=== PATIENT | male | born 1945 | race Caucasian/White ===

== ENCOUNTER 2017-09-25 16:15 | Emergency (ER) | payer MEDICARE, OTHER ==
[2017-09-25] MEDS ORDERED: Ondansetron INJ* 2 MG/ML VIAL IV ONE (16:49)
[2017-09-25] MEDS ORDERED: Meclizine TAB* 12.5 MG PO ONE ×2 (16:49→22:36)
[2017-09-25] MEDS ORDERED: NS 0.9% 1000 ML* 1,000 ML IV ONE (16:49)
--- NOTE | 2017-09-25 17:09 | RAD ---
HISTORY: Dizziness COMPARISONS: None TECHNIQUE: Multiple contiguous axial CT scans were obtained of the head without intravenous contrast. FINDINGS: HEMORRHAGE/INFARCT: There is no hemorrhage or acute infarct. MASSES/SHIFT: There is no mass or shift. EXTRA-AXIAL SPACES: There are no extra-axial fluid collections. SULCI AND VENTRICLES: The sulci and ventricles are normal in size and position for the patient's stated age. CEREBRUM: There are no focal parenchymal abnormalities. BRAINSTEM: There are no focal parenchymal abnormalities. CEREBELLUM: There are no focal parenchymal abnormalities. VESSELS: The vessels are grossly normal. PARANASAL SINUSES: The paranasal sinuses are clear. ORBITS: The orbits are unremarkable. BONES AND SOFT TISSUE: No bone or soft tissue abnormalities are noted. OTHER: None IMPRESSION: NO ACUTE INTRACRANIAL PATHOLOGY.
[2017-09-25 17:41] LABS: Hematocrit 42 % (42-52); Hemoglobin 14.2 g/dl (14.0-18.0); Mean Corpuscular HGB Conc 34 g/dl (31-36); Mean Corpuscular Hemoglobin 31 pg (27-31); Mean Corpuscular Volume 91 fL (80-94); Mean Platelet Volume 8 um3 (7.4-10.4); Red Blood Count 4.61 10^6/ul (4.0-5.4); Red Cell Distribution Width 14 % (10.5-15); White Blood Count 17.7 10^3/ul (3.5-10.8)
--- NOTE | 2017-09-25 17:43 | RAD ---
HISTORY: Near syncope COMPARISONS: None VIEWS: 1: frontal portable view of the chest at 5:25 PM FINDINGS: LINES AND TUBES: None. CARDIOMEDIASTINAL SILHOUETTE: The cardiomediastinal silhouette is normal for portable technique. Surgical clips are noted in the mediastinum. PLEURA: The costophrenic angles are sharp. No pleural abnormalities are noted. LUNG PARENCHYMA: There is a diffuse reticular pattern with indistinct pulmonary vessels. ABDOMEN: The upper abdomen is clear. There is no subphrenic gas. BONES AND SOFT TISSUES: The patient is status post median sternotomy. IMPRESSION: LOW LUNG VOLUMES. NO ACTIVE CARDIOPULMONARY DISEASE.
[2017-09-25 17:56] LABS: ALT 26 U/L (7-52); Albumin 4.3 g/dL (3.2-5.2); Alkaline Phosphatase 64 U/L (34-104); BUN/Creatinine Ratio 19.5 (8-20); Blood Urea Nitrogen 17 mg/dL (6-24); C Reactive Protein < 1.00 mg/L (< 5.00); CO2 Carbon Dioxide 23 mmol/L (22-32); Calcium 9.1 mg/dL (8.6-10.3); Chloride 103 mmol/L (101-111); Creatine Kinase 79 U/L (10-223); EGFR African American 110.6 (>60); Globulin 2.6 g/dL (2-4); Glucose 229 mg/dL (70-100); Lipase 42 U/L (11.0-82.0); Magnesium 1.7 mg/dL (1.9-2.7); Sodium 136 mmol/L (133-145); Total Protein 6.9 g/dL (6.4-8.9)
[2017-09-25 17:57] LABS: Troponin I 0.02 ng/mL (<0.04)
[2017-09-25 17:58] LABS: Anion Gap 10 mmol/L (2-11)
[2017-09-25 18:16] LABS: TSH (Thyroid Stimulating Horm) 0.32 mcIU/mL (0.34-5.60)
[2017-09-25] MEDS ORDERED: Magnesium Sulfate 2 GM IV* 2 GM/50 ML BAG IVPB ONE (18:23)
[2017-09-25 18:47] LABS: Urine Bacteria Absent (Absent); Urine Bilirubin Negative (Negative); Urine Glucose 3+(>=500 mg/dL) (Negative); Urine Nitrite Negative (Negative)
[2017-09-25] MEDS ORDERED: Iodixanol* (CONTRAST) 320 MG/ML 100 ML SDV IV ONE (19:28)
--- NOTE | 2017-09-25 20:05 | RAD ---
HISTORY: Near syncope, positive d-dimer COMPARISONS: None TECHNIQUE: Multiple contiguous axial CT scans of the chest were obtained after the administration of nonionic intravenous contrast, timed to the pulmonary arterial phase of contrast enhancement.. Coronal and sagittal multiplanar reformations are also submitted for review. FINDINGS: NECK AND THYROID: The lower neck and thyroid are unremarkable. CHEST WALL: There is no lower cervical, axillary, or supraclavicular lymphadenopathy by size criteria. HEART AND PERICARDIUM: The heart is unremarkable. AORTA AND PULMONARY VASCULATURE: There is no pulmonary arterial filling defect to suggest pulmonary embolism. There is no linear filling defect within the aorta to suggest aortic dissection. MEDIASTINUM: There is no mediastinal lymphadenopathy by size criteria. LYNN: There is no hilar lymphadenopathy by size criteria. AIRWAY AND ESOPHAGUS: The airway is unremarkable, without endobronchial filling defect. The esophagus is grossly normal. LUNG PARENCHYMA: There is a 1.7 cm nodule of the left lower lobe best seen on axial image 34 and coronal image 72. PLEURA: No pleural abnormalities are noted. UPPER ABDOMEN: The upper abdomen is unremarkable. BONES AND SOFT TISSUES: Degenerative changes are noted of the spine. The patient is status post median sternotomy. OTHER: None. IMPRESSION: 1. NO PULMONARY ARTERIAL FILLING DEFECT TO SUGGEST PULMONARY EMBOLISM. 2. 1.7 CM LEFT LOWER LOBE LUNG NODULE. THE RECOMMENDATIONS FOR FOLLOWUP AND MANAGEMENT OF AN INCIDENTALLY DETECTED PULMONARY NODULE GREATER THAN 8 MM IN SIZE, IN A PATIENT WITHOUT A HISTORY OF MALIGNANCY, INCLUDE FOLLOWUP CT AT 3 MONTHS, PET-CT, AND/OR BIOPSY. NOTES: SIZE = AVERAGE LENGTH AND WIDTH; HIGH RISK IS DEFINED A HISTORY OF SMOKING OR OTHER KNOW RISK FACTORS FOR LUNG CANCER; LOW RISK IS DEFINED MINIMAL OR ABSENT HISTORY OF SMOKING OR OTHER KNOWN RISK FACTORS. Deon H, ONEYDA Martinez, PK Jones, et al (2017) "Guidelines for Management of Incidental Pulmonary Nodules Detected on CT Images: From the Fleischner Society 2017." Radiology; 284(1): 228-243. doi:10.1148/radiol.[id number]
--- NOTE | 2017-09-25 21:11 | RAD ---
HISTORY: Positive d-dimer COMPARISONS: None relevant TECHNIQUE: Multiple transverse and longitudinal ultrasound images were obtained of the left lower extremity from the level of the common femoral vein inferiorly through to the infrapopliteal veins using grayscale, color Doppler, and spectral Doppler imaging with and without compression and with augmentation. Comparison images were obtained of the contralateral common femoral vein. FINDINGS: VEINS: The peroneal veins are compressible but have diminished flow on color Doppler imaging. The remainder of the venous system of the left lower extremity is compressible throughout its course, with normal flow on color Doppler imaging and normal response to augmentation on spectral Doppler imaging. SOFT TISSUES: Unremarkable. OTHER FINDINGS: None. IMPRESSION: DIMINISHED FLOW OF THE CALF VEINS WHICH MAY BE ARTIFACTUAL MAY REFLECT CHRONIC CALF VEIN THROMBOSIS. NO SUPRAPOPLITEAL DEEP VEIN THROMBOSIS
[2017-09-25] MEDS ORDERED: Ondansetron ODT TAB* 4 MG PO ONE (22:37)
--- NOTE | 2017-09-25 22:52 | ED ---
Jeremie Epperson Alfonso, scribed for Mikal Antony MD on 09/25/17 at 1652 . Syncope/Near Syncope - HPI Summary HPI Summary: This patient is a 72 year old M BIBA to [facility] accompanied by with a chief complaint of near-syncope since 1529. The symptoms began while at the [employer] game. The patient rates the pain 0/10 in severity. Symptoms aggravated by head movement and standing. Symptoms alleviated by rest. Patient reports dizziness (lightheadedness/room spinning), loss of balance, N/V, general weakness ("weighting a ton"), and dry mouth. Patient denies SOB, diaphoresis, CP , REYNA, neck pain, abd pain, melena, blood in stool, calf edema, focal weakness, and numbness. - History Of Current Complaint Chief Complaint: EDSyncope Time Seen by Provider: 09/25/17 16:29 Hx Obtained From: Patient, Family/Nurse Examiner Onset/Duration: Sudden Onset, Lasting Minutes, Still Present Timing: Constant Context: Witnessed Activity At Onset: Other - [email or web address] game Aggravating Factor(s): Position Change - head movement and standing Alleviating Factor(s): Rest Associated Signs And Symptoms: Other - dizziness (lightheadedness/room spinning) , loss of balance, N/V, general weakness ("weighting a ton"), and dry mouth. Patient denies SOB, diaphoresis, CP, REYNA, neck pain, abd pain, melena, blood in stool, calf edema, focal weakness, and numbness. - Allergies/Home Medications Allergies/Adverse Reactions: Allergies Allergy/AdvReac Type Severity Reaction Status Date / Time No Known Allergies Allergy Verified 09/25/17 16:23 Home Medications: Home Medications Aspirin [Aspirin 81 MG TAB] 81 mg PO DAILY 09/25/17 [History Confirmed 09/25/17] Atorvastatin* [Lipitor 40 MG*] 40 mg PO DAILY 09/25/17 [History Confirmed ] Escitalopram (NF) [Lexapro 10 mg (NF)] 10 mg PO DAILY 09/25/17 [History Confirmed 09/25/17] Levothyroxine TAB* [Synthroid 150 MCG TAB*] 150 mcg PO DAILY 09/25/17 [History Confirmed 09/25/17] Lisinopril TAB* [Prinivil TAB 10 MG*] 40 mg PO DAILY 09/25/17 [History Confirmed 09/25/17] Metoprolol Tartrate TAB* [Lopressor TAB*] 50 mg PO DAILY 09/25/17 [History Confirmed 09/25/17] amLODIPine TAB* [Norvasc 5 mg TAB*] 10 mg PO DAILY 09/25/17 [History Confirmed 09/25/17] metFORMIN* [Glucophage 1000 MG TAB *] 1,000 mg PO BID 09/25/17 [History Confirmed 09/25/17] PMH/Surg Hx/FS Hx/Imm Hx Previously Healthy: No Endocrine/Hematology History: Reports: Hx Diabetes Cardiovascular History: Reports: Hx Coronary Artery Disease, Hx Hypercholesterolemia, Hx Hypertension, Hx Myocardial Infarction EENT History: Reports: 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 - Surgical History Surgery Procedure, Year, and Place: quadruple bypass Infectious Disease History: No Infectious Disease History: Denies: Traveled Outside the [place] in Last 30 Days - Family History Known Family History: Positive: Cardiac Disease - Social History Lives: With Family Alcohol Use: Rare Hx Substance Use: No Substance Use Type: Reports: None Hx Tobacco Use: Yes Smoking Status (MU): Former Smoker Review of Systems Negative: Skin Diaphoresis Positive: Other - dry mouth Negative: Chest Pain Negative: Shortness Of Breath Positive: Vomiting, Nausea, Other - negative melena, blood in stool. Negative: Abdominal Pain Positive: Other - Negative neck pain. Negative: Edema Neurological: Other - dizziness (lightheadedness/room spinning), loss of balance ; negative focal weakness Positive: Weakness - generalized, Syncope - near-syncope. Negative: Headache, Numbness All Other Systems Reviewed And Are Negative: Yes Physical Exam - Summary Physical Exam Summary: General: well-appearing, no pain distress Skin: warm, color reflects adequate perfusion, dry Head: normal Eyes: EOMI, EVELIO ENT: Right TM opaque, Left TM normal. Neck: supple, nontender Respiratory: CTA, breath sounds present Cardiovascular: RRR Abdomen: soft, nontender Bowel: present Musculoskeletal: normal, strength/ROM intact Neurological: normal, sensory/motor intact, A&O x3 Psychological: affect/mood appropriate Triage Information Reviewed: Yes Vital Signs On Initial Exam: Initial Vitals Temp Pulse Resp BP Pulse Ox 97.3 F 67 14 152/63 94 09/25/17 16:19 09/25/17 16:19 09/25/17 16:19 09/25/17 16:19 09/25/17 16:19 Vital Signs Reviewed: Yes - Fab Coma Scale Coma Scale Total: 14 Diagnostics - Vital Signs Vital Signs Temp Pulse Resp BP Pulse Ox 09/25/17 16:30 66 122/50 96 09/25/17 16:23 68 19 92 09/25/17 16:21 152/63 09/25/17 16:19 97.3 F 67 14 152/63 94 - Laboratory Lab Results: Lab Results 09/25/17 09/25/17 09/25/17 Range/Units 17:13 17:13 17:13 WBC (3.5-10.8) 10^3/ul RBC (4.0-5.4) 10^6/ul Hgb (14.0-18.0) g/dl Hct (42-52) % MCV (80-94) fL MCH (27-31) pg MCHC (31-36) g/dl RDW (10.5-15) % Plt Count (150-450) 10^3/ul MPV (7.4-10.4) um3 Neut % (Auto) (38-83) % Lymph % (Auto) (25-47) % Gates % (Auto) (1-9) % Eos % (Auto) (0-6) % Baso % (Auto) (0-2) % Absolute Neuts (auto) (1.5-7.7) 10^3/ul Absolute Lymphs (auto) (1.0-4.8) 10^3/ul Absolute Monos (auto) (0-0.8) 10^3/ul Absolute Eos (auto) (0-0.6) 10^3/ul Absolute Basos (auto) (0-0.2) 10^3/ul Absolute Nucleated RBC 10^3/ul Nucleated RBC % INR (Anticoag Therapy) 0.90 (0.89-1.11) APTT 25.5 L (26.0-36.3) seconds D-Dimer, Quantitative 313 H (Less Than 230) ng/mL Sodium 136 (133-145) mmol/L Potassium TNP Chloride 103 (101-111) mmol/L Carbon Dioxide 23 (22-32) mmol/L Anion Gap 10 (2-11) mmol/L BUN 17 (6-24) mg/dL Creatinine 0.87 (0.67-1.17) mg/dL Est GFR ( Amer) 110.6 (>60) Est GFR (Non-Af Amer) 86.0 (>60) BUN/Creatinine Ratio 19.5 (8-20) Glucose 229 H (70-100) mg/dL Lactic Acid 3.7 H* (0.5-2.0) mmol/L Calcium 9.1 (8.6-10.3) mg/dL Magnesium 1.7 L (1.9-2.7) mg/dL Total Bilirubin 0.50 (0.2-1.0) mg/dL AST TNP ALT 26 (7-52) U/L Alkaline Phosphatase 64 (34-104) U/L Total Creatine Kinase 79 (10-223) U/L CK-MB (CK-2) 2.2 (0.6-6.3) ng/mL Troponin I 0.02 (<0.04) ng/mL C-Reactive Protein < 1.00 (< 5.00) mg/L B-Natriuretic Peptide ( - 100) pg/mL Total Protein 6.9 (6.4-8.9) g/dL Albumin 4.3 (3.2-5.2) g/dL Globulin 2.6 (2-4) g/dL Albumin/Globulin Ratio 1.7 (1-3) Lipase 42 (11.0-82.0) U/L TSH 0.32 L (0.34-5.60) mcIU/mL Urine Color Urine Appearance Urine pH (5-9) Ur Specific [place] (1.010-1.030) Urine Protein (Negative) Urine Ketones (Negative) Urine Blood (Negative) Urine Nitrate (Negative) Urine Bilirubin (Negative) Urine Urobilinogen (Negative) Ur Leukocyte Esterase (Negative) Urine WBC (Auto) (Absent) Urine RBC (Auto) (Absent) Urine Bacteria (Absent) Urine Glucose (Negative) Urine Ascorbic Acid (Negative) 09/25/17 09/25/17 09/25/17 Range/Units 17:13 17:13 18:37 WBC 17.7 H (3.5-10.8) 10^3/ul RBC 4.61 (4.0-5.4) 10^6/ul Hgb 14.2 (14.0-18.0) g/dl Hct 42 (42-52) % MCV 91 (80-94) fL MCH 31 (27-31) pg MCHC 34 (31-36) g/dl RDW 14 (10.5-15) % Plt Count 211 (150-450) 10^3/ul MPV 8 (7.4-10.4) um3 Neut % (Auto) 86.4 H (38-83) % Lymph % (Auto) 7.5 L (25-47) % Gates % (Auto) 5.3 (1-9) % Eos % (Auto) 0.3 (0-6) % Baso % (Auto) 0.5 (0-2) % Absolute Neuts (auto) 15.3 H (1.5-7.7) 10^3/ul Absolute Lymphs (auto) 1.3 (1.0-4.8) 10^3/ul Absolute Monos (auto) 0.9 H (0-0.8) 10^3/ul Absolute Eos (auto) 0 (0-0.6) 10^3/ul Absolute Basos (auto) 0.1 (0-0.2) 10^3/ul Absolute Nucleated RBC 0.02 10^3/ul Nucleated RBC % 0.1 INR (Anticoag Therapy) (0.89-1.11) APTT (26.0-36.3) seconds D-Dimer, Quantitative (Less Than 230) ng/mL Sodium (133-145) mmol/L Potassium Chloride (101-111) mmol/L Carbon Dioxide (22-32) mmol/L Anion Gap (2-11) mmol/L BUN (6-24) mg/dL Creatinine (0.67-1.17) mg/dL Est GFR ( Amer) (>60) Est GFR (Non-Af Amer) (>60) BUN/Creatinine Ratio (8-20) Glucose (70-100) mg/dL Lactic Acid (0.5-2.0) mmol/L Calcium (8.6-10.3) mg/dL Magnesium (1.9-2.7) mg/dL Total Bilirubin (0.2-1.0) mg/dL AST ALT (7-52) U/L Alkaline Phosphatase (34-104) U/L Total Creatine Kinase (10-223) U/L CK-MB (CK-2) (0.6-6.3) ng/mL Troponin I (<0.04) ng/mL C-Reactive Protein (< 5.00) mg/L B-Natriuretic Peptide 66 ( - 100) pg/mL Total Protein (6.4-8.9) g/dL Albumin (3.2-5.2) g/dL Globulin (2-4) g/dL Albumin/Globulin Ratio (1-3) Lipase (11.0-82.0) U/L TSH (0.34-5.60) mcIU/mL Urine Color Yellow Urine Appearance Clear Urine pH 5.0 (5-9) Ur Specific [place] 1.015 (1.010-1.030) Urine Protein 1+(30 mg/dl) H (Negative) Urine Ketones Trace H (Negative) Urine Blood Negative (Negative) Urine Nitrate Negative (Negative) Urine Bilirubin Negative (Negative) Urine Urobilinogen Negative (Negative) Ur Leukocyte Esterase Negative (Negative) Urine WBC (Auto) Absent (Absent) Urine RBC (Auto) Trace(0-2/hpf) (Absent) Urine Bacteria Absent (Absent) Urine Glucose 3+(>=500 mg/dl) H (Negative) Urine Ascorbic Acid * H (Negative) 09/25/17 Range/Units 21:23 WBC (3.5-10.8) 10^3/ul RBC (4.0-5.4) 10^6/ul Hgb (14.0-18.0) g/dl Hct (42-52) % MCV (80-94) fL MCH (27-31) pg MCHC (31-36) g/dl RDW (10.5-15) % Plt Count (150-450) 10^3/ul MPV (7.4-10.4) um3 Neut % (Auto) (38-83) % Lymph % (Auto) (25-47) % Gates % (Auto) (1-9) % Eos % (Auto) (0-6) % Baso % (Auto) (0-2) % Absolute Neuts (auto) (1.5-7.7) 10^3/ul Absolute Lymphs (auto) (1.0-4.8) 10^3/ul Absolute Monos (auto) (0-0.8) 10^3/ul Absolute Eos (auto) (0-0.6) 10^3/ul Absolute Basos (auto) (0-0.2) 10^3/ul Absolute Nucleated RBC 10^3/ul Nucleated RBC % INR (Anticoag Therapy) (0.89-1.11) APTT (26.0-36.3) seconds D-Dimer, Quantitative (Less Than 230) ng/mL Sodium (133-145) mmol/L Potassium Chloride (101-111) mmol/L Carbon Dioxide (22-32) mmol/L Anion Gap (2-11) mmol/L BUN (6-24) mg/dL Creatinine (0.67-1.17) mg/dL Est GFR ( Amer) (>60) Est GFR (Non-Af Amer) (>60) BUN/Creatinine Ratio (8-20) Glucose (70-100) mg/dL Lactic Acid (0.5-2.0) mmol/L Calcium (8.6-10.3) mg/dL Magnesium (1.9-2.7) mg/dL Total Bilirubin (0.2-1.0) mg/dL AST ALT (7-52) U/L Alkaline Phosphatase (34-104) U/L Total Creatine Kinase (10-223) U/L CK-MB (CK-2) (0.6-6.3) ng/mL Troponin I 0.04 H* (<0.04) ng/mL C-Reactive Protein (< 5.00) mg/L B-Natriuretic Peptide ( - 100) pg/mL Total Protein (6.4-8.9) g/dL Albumin (3.2-5.2) g/dL Globulin (2-4) g/dL Albumin/Globulin Ratio (1-3) Lipase (11.0-82.0) U/L TSH (0.34-5.60) mcIU/mL Urine Color Urine Appearance Urine pH (5-9) Ur Specific [place] (1.010-1.030) Urine Protein (Negative) Urine Ketones (Negative) Urine Blood (Negative) Urine Nitrate (Negative) Urine Bilirubin (Negative) Urine Urobilinogen (Negative) Ur Leukocyte Esterase (Negative) Urine WBC (Auto) (Absent) Urine RBC (Auto) (Absent) Urine Bacteria (Absent) Urine Glucose (Negative) Urine Ascorbic Acid (Negative) Result Diagrams: 09/25/17 17:13 09/25/17 17:13 Lab Statement: Any lab studies that have been ordered have been reviewed, and results considered in the medical decision making process. - Radiology CXR Radiology Interpretation Completed By: Radiologist - LOW LUNG VOLUMES. NO ACTIVE CARDIOPULMONARY DISEASE. ED physician has reviewed this radiology report and agrees. - CT brain CT Interpretation Completed By: Radiologist - Brain CT reveals, per radiologist , NO ACUTE INTRACRANIAL PATHOLOGY. ED physician has reviewed this radiology report and agrees. - EKG 1717 Cardiac Rate: NL EKG Rhythm: Sinus Rhythm - 66 BPM. Prolonged pr at 250. Nonspecific ventricular conduction delay ST Segment: Normal Ectopy: None Course/Dx Course Of Treatment: IMPROVED IN ED. FELT WELL WITH AMBULATION IN ED. DENIES ANY CHEST PAIN. DISCUSSED RESULTS TO INCLUDE TROPONIN OF 0.04. I RECOMMENDED ADMISSION. AFTER DISCUSSION WITH PATIENT//DUAGHTER AND MYSELF, PATIENT DECLINED ADMISSION. HE WISHES TO GO HOME AND FOLLOW UP WITH HIS DOCTOR. HE WILL GO DIRECTLY TO THE NEAREST EMERGENCY DEPARTMENT FOR ANY WORSENING OF HIS SYMPTOMS OR QUESTIONS OR CONCERNS. I CALLED IN RX MECLIZINE 25MG #15 AND ZOFRAN 4MG ODT #10 TO THE [facility] IN [place] [id number]. - Diagnoses Provider Diagnoses: Vertigo, Dizziness, Nausea, Elevated troponin, Pulmonary nodule, Near syncope Discharge - Discharge Plan Condition: Stable Disposition: HOME Patient Education Materials: Vertigo (ED), Acute Nausea and Vomiting (ED), Near Syncope (ED), Dizziness (ED), Pulmonary Nodules (ED) Referrals: Non Staff,Doctor [Primary Care Provider] - Additional Instructions: FOLLOW UP WITH YOUR DOCTOR ON 09/27/17. DISCUSS YOUR LAB, CT, EKG AND CT RESULTS WITH HIM. RETURN TO THE EMERGENCY DEPARTMENT FOR ANY WORSENING OF YOUR CONDITION; CHEST PAIN, SHORTNESS OF BREATH, YOU FEEL ILL OR QUESTIONS OR CONCERNS. The documentation as recorded by the Jeremie cowart Alfonso accurately reflects the service I personally performed and the decisions made by me, Mikal Antony MD.
[2017-09-25 23:44] VITALS: BP 142/56
== END 2017-09-25 23:42 | disposition home or self-care (01) ==
LOC: ED 16:15
DX: R42 Dizziness and giddiness (principal); R11.0 Nausea; R79.89 Other specified abnormal findings of blood chemistry; R91.1 Solitary pulmonary nodule; E11.9 Type 2 diabetes mellitus without complications; I25.10 Atherosclerotic heart disease of native coronary artery without angina pectoris; E78.00 Pure hypercholesterolemia, unspecified; I10 Essential (primary) hypertension; I25.2 Old myocardial infarction; Z87.891 Personal history of nicotine dependence; Z95.1 Presence of aortocoronary bypass graft
CPT/HCPCS: 36415; 70450; 71010; 71275; 80053; 81003; 81015; 82550; 82553; 83605; 83690; 83735; 83880; 84443; 84484; 85025; 85379; 85610; 85730; 86140; 93005; 93970; 96360; 96374; 96375; 99284; A9270-GY; J3475; Q9967